=== PATIENT | male | born 1980 | race Two or more races ===

== ENCOUNTER 2020-06-20 01:22 | Emergency (ER) | payer MEDICAID, OTHER ==
[~2020-06-20] VITALS: Ht 185.4 cm; Wt 77.1 kg
[2020-06-20 01:25] VITALS: BP 137/78
[2020-06-20] MEDS ORDERED: KETOROLAC TROMETHAMINE INJ 60 MG/2 ML VIAL IM ONE ×2 (01:30→01:33)
--- NOTE | 2020-06-20 01:36 | NUR ---
RADIOLOGY AT BEDSIDE FOR XRAY
== END 2020-06-20 03:48 | disposition home or self-care (01) ==
LOC: ER 01:24
DX: R07.89 Other chest pain (principal); R06.02 Shortness of breath; R07.81 Pleurodynia
CPT/HCPCS: 71100; 96372; 99283; J1885

== ENCOUNTER 2025-06-19 09:31 | Emergency (ER) | payer MEDICAID ==
[~2025-06-19] VITALS: Ht 185.4 cm; Wt 81.6 kg
[2025-06-19] MEDS ORDERED: ASPIRIN 81 MG TAB.CHEW ONE ×2 (12:31→12:33)
[2025-06-19] MEDS: ASPIRIN 81 MG TAB.CHEW PO ONE (12:34)
[2025-06-19 12:54] LABS: PLATELET COUNT (AUTO) 278 K/uL (150-450); RED BLOOD CELL COUNT(AUTO) 5.08 MIL/uL (4.5-6.0); RED CELL DISTRIBUTION WIDTH 14.0 % (11.5-15.0); WHITE BLOOD COUNT (AUTO) 10.3 K/uL (4.3-11.0)
[2025-06-19 13:04] LABS: CALCIUM, SERUM 8.7 mg/dL (8.5-10.1); CREATININE 0.8 mg/dL (0.6-1.3); SODIUM SERUM 142 mmol/L (136-145); UREA NITROGEN, BLOOD 18 mg/dL (7-18)
[2025-06-19] MEDS ORDERED: IBUP-1490 PO (13:21)
[2025-06-19] MEDS ORDERED: AMLO10TA4 PO (13:21)
[2025-06-19 13:46] VITALS: BP 155/87; TEMP 98.8; O2SAT 99
== END 2025-06-19 13:47 | disposition home or self-care (01) ==
LOC: ER 09:34
DX: R07.89 Other chest pain (principal); F15.10 Other stimulant abuse, uncomplicated; I10 Essential (primary) hypertension; F17.200 Nicotine dependence, unspecified, uncomplicated
CPT/HCPCS: 36415; 71045-TC; 80048-TC; 84484-TC; 85025-TC